=== PATIENT | male | born 1990 | race Caucasian/White ===

== ENCOUNTER 2025-01-20 12:54 | Emergency (ER) | payer SELFPAY ==
[2025-01-20 13:00] VITALS: BP 164/106; PULSE 63; RESP 18; TEMP 36.8; O2SAT 97; BMI 20.3
[2025-01-20 13:06] LABS: POC Glucose 98 mg/dL (70-99)
[2025-01-20 13:11] VITALS: PULSE 71; RESP 13; O2SAT 99
[2025-01-20 13:17] LABS: Add Manual Diff / Slide Review NO; Basophils Absolute Auto 0 /uL (0-100); Basophils Percent Auto 0.7 % (0-2); Eosinophils Absolute Auto 0 /uL (0-450); Eosinophils Percent Auto 0.1 % (2-4); Hematocrit 41.6 % (41-53); Hemoglobin 14.5 g/dL (13.5-17.5); Lymphocytes Absolute Auto 600 /uL (1100-4500); Lymphocytes Percent Auto 10.5 % (25-40); Mean Corpuscular HGB Conc 34.9 % (30-36); Mean Corpuscular Hemoglobin 33.5 PG (26-34); Mean Corpuscular Volume 96.1 fL (80-100); Monocytes Absolute Auto 600 /uL (0-900); Monocytes Percent Auto 10.2 % (3-14); Neutrophils Absolute Auto 4600 /uL (1500-7000); Neutrophils Percent Auto 78.5 % (50-75); Platelet Count 184 X10^3/uL (150-400); Red Blood Cell Count 4.33 X10^6/uL (4.5-5.9); Red Cell Distribution Width 12.6 % (11.6-14.8); White Blood Cell Count 5.9 X10^3/uL (4.5-11.0)
[2025-01-20 13:30] VITALS: BP 162/99; PULSE 91; O2SAT 99
--- NOTE | 2025-01-20 13:39 | ED.NAVMDI ---
HPI - Nausea/Vomiting/Diarrhea <Emilia Peterson PA-C - Last Filed: 01/20/25 17:29> General Chief complaint: Nausea/Vomiting/Diarrhea Stated complaint: Nausea, Dizziness, LUQ pain Time Seen by Provider: 01/20/25 12:57 Source: patient and EMS Mode of arrival: EMS History of Present Illness HPI Narrative: This is a 34-year-old male who denies any medical problems and comes in via [facility] with concern for 4-5 days of COVID/flu-like symptoms with severe nausea and abdominal discomfort beginning this morning. Patient endorses for 4 or 5 days he has been fatigued he has had a sore throat cough some chills and generally been feeling unwell with some associated lightheadedness/dizziness also states he had severe right ear pain for the last 4 days that seemed like it resolved fairly suddenly in the last 12 hours. He has not noted hearing change or drainage from his ear. Because of this he has not been using his vape pen as much as usual and has cut back quite a bit on both marijuana which he says he uses 2 to 4 times a week and also nicotine vaping. Endorses generalized upper abdominal discomfort which he associates with his excessive retching this morning. He feels a strong urge to vomit but feels unable to do so. He does state he last smoked marijuana at about 8:00 p.m. last night and his nausea symptoms started this morning around 7 or 8:00 a.m. He denies any diarrhea or constipation also denies chest pain palpitations or alcohol use. He states he drinks a few times a week and has not had alcohol recently. He states he has never had a problem like this before with excessive nausea. He acknowledges he has had 1 COVID vaccine shot the [employer] shot early on in the pandemic. And has had COVID before but symptoms were not as bad as they are now. He says his cough has largely resolved in the last 12 hours or so. Prior to arrival in the ER patient had 2.5 mg of Haldol, 4 mg of Zofran and 10 mg of Reglan as well as a L of fluids. Related Data Previous Rx's ?Medication ?Instructions ?Recorded benzonatate 100 mg capsule 100 mg PO BID PRN cough 10 days 01/20/25 #30 caps ciprofloxacin 0.3 %-dexamethasone 4 drp EAR-RIGHT Q12H otitis 01/20/25 0.1 % ear drops,suspension externa 7 days #7.5 mL metoclopramide HCl 5 mg tablet 5 mg PO Q8H PRN nausea and 01/20/25 (Reglan) vomiting #12 tabs Allergies Allergy/AdvReac Type Severity Reaction Status Date / Time No Known Drug Allergies Allergy Verified 01/20/25 13:01 Review of Systems <Emilia Peterson PA-C - Last Filed: 01/20/25 17:29> Review of Systems Narrative: See HPI Patient History <Emilia Peterson PA-C - Last Filed: 01/20/25 17:29> Smoking Status: Current every day smoker tobacco type: vaping Exam <Emilia Peterson PA-C - Last Filed: 01/20/25 17:29> Narrative Exam Narrative: GENERAL: [34] year old patient appears stated age. Very slim patient, in moderate distress--patient is sitting upright and forward attempting to vomit, retching into an emesis bag with no production. Patient does not appear to be inducing vomiting. HEAD: Atraumatic. Normocephalic. EYES: Pupils equal round and reactive. Extraocular motions intact. No scleral icterus. No injection or drainage. ENT: Nose without bleeding, purulent drainage. Throat with mild erythema, there is mild erythema of the tonsillar pillar. Without tonsillar hypertrophy or exudate. Airway patent. The right ear canal has thick yellowish white material in it, unable to visualize the TM. It was somewhat foul smelling. Culture obtained. The left TM is slightly retracted with clear fluid behind it. NECK: Trachea midline. Non tender CARDIOVASCULAR: Regular rate and rhythm without murmurs, gallops, or rubs. RESPIRATORY: Clear to auscultation. Breath sounds equal bilaterally. No wheezes, rales, or rhonchi. GASTROINTESTINAL: There is mild upper generalized abdominal discomfort on palpation, Abdomen soft, non-tender, nondistended, negative Richards's sign, negative McBurney's point tenderness no CVA tenderness. EXTREMITIES: No edema or joint tenderness. Moving all extremities BACK: Nontender without deformity or crepitance. No flank tenderness. NEURO: AOx3. SKIN: No rash or erythema of visible areas Initial Vital Signs Initial Vital Signs: Vital Signs Temperature 98.3 F 01/20/25 13:00 Pulse Rate 63 01/20/25 13:00 Respiratory Rate 18 01/20/25 13:00 Blood Pressure 164/106 H 01/20/25 13:00 Pulse Oximetry 97 01/20/25 13:00 Oxygen Delivery Method Room Air 01/20/25 13:00 <Lilia Degroot MD - Last Filed: 01/21/25 18:34> Initial Vital Signs Initial Vital Signs: Vital Signs Temperature 98.3 F 01/20/25 13:00 Pulse Rate 63 01/20/25 13:00 Respiratory Rate 18 01/20/25 13:00 Blood Pressure 164/106 H 01/20/25 13:00 Pulse Oximetry 97 01/20/25 13:00 Oxygen Delivery Method Room Air 01/20/25 13:00 Course <Emilia Peterson PA-C - Last Filed: 01/20/25 17:29> Orders Ordered: Discontinued Medications Sodium Chloride (Normal Saline 0.9%) 1,000 mls @ 1,000 mls/hr IV BOLUS PRN PRN Reason: Fluid replacement Sodium Chloride (Normal Saline 0.9%) 1,000 mls @ 1,000 mls/hr IV BOLUS ONE Stop: 01/20/25 15:07 Last Infusion: 01/20/25 14:58 Dose: 0 mls/hr Documented By: Admin: 01/20/25 14:11 Dose: 1,000 mls/hr Documented By: ANUJA Vital Signs Vital signs: Vital Signs - 8 hr 01/20/25 13:00 01/20/25 13:11 01/20/25 13:30 Temperature 98.3 F Pulse Rate 63 71 91 H Respiratory Rate 18 13 Blood Pressure 164/106 H Pulse Oximetry 97 99 99 Oxygen Delivery Method Room Air 01/20/25 13:30 01/20/25 14:00 01/20/25 14:00 Temperature Pulse Rate 87 Respiratory Rate 23 Blood Pressure 162/99 H 145/86 H Pulse Oximetry 98 Oxygen Delivery Method 01/20/25 14:54 01/20/25 14:54 01/20/25 14:59 Temperature Pulse Rate 83 83 Respiratory Rate 14 Blood Pressure 145/85 H 145/85 H Pulse Oximetry 99 99 Oxygen Delivery Method Room Air <Lilia Degroot MD - Last Filed: 01/21/25 18:34> Orders Ordered: Discontinued Medications Sodium Chloride (Normal Saline 0.9%) 1,000 mls @ 1,000 mls/hr IV BOLUS PRN PRN Reason: Fluid replacement Sodium Chloride (Normal Saline 0.9%) 1,000 mls @ 1,000 mls/hr IV BOLUS ONE Stop: 01/20/25 15:07 Last Infusion: 01/20/25 14:58 Dose: 0 mls/hr Documented By: Admin: 01/20/25 14:11 Dose: 1,000 mls/hr Documented By: ANUJA Vital Signs Vital signs: Vital Signs - 8 hr 01/20/25 13:00 01/20/25 13:11 01/20/25 13:30 Temperature 98.3 F Pulse Rate 63 71 91 H Respiratory Rate 18 13 Blood Pressure 164/106 H Pulse Oximetry 97 99 99 Oxygen Delivery Method Room Air 01/20/25 13:30 01/20/25 14:00 01/20/25 14:00 Temperature Pulse Rate 87 Respiratory Rate 23 Blood Pressure 162/99 H 145/86 H Pulse Oximetry 98 Oxygen Delivery Method 01/20/25 14:54 01/20/25 14:54 01/20/25 14:59 Temperature Pulse Rate 83 83 Respiratory Rate 14 Blood Pressure 145/85 H 145/85 H Pulse Oximetry 99 99 Oxygen Delivery Method Room Air MDM - Nausea/Vomiting/Diarrhea <Emilia Peterson PA-C - Last Filed: 01/20/25 17:29> Differential Diagnosis Differential diagnosis: Likely gastroenteritis, dehydration and other (Viral illness, COVID, otitis externa.) Medical Records Attestation: I reviewed the patient's medical records. Lab Data Attestation: I reviewed the patient's lab results. 01/20/25 13:10 01/20/25 13:40 Labs: Lab Results 01/20/25 01/20/25 01/20/25 Range/Units 13:00 13:10 13:17 WBC 5.9 (4.5-11.0) X10^3/uL RBC 4.33 L (4.5-5.9) X10^6/uL Hgb 14.5 (13.5-17.5) g/dL Hct 41.6 (41-53) % MCV 96.1 (80-100) fL MCH 33.5 (26-34) PG MCHC 34.9 (30-36) % RDW 12.6 (11.6-14.8) % Plt Count 184 (150-400) X10^3/uL Neut % (Auto) 78.5 H (50-75) % Lymph % (Auto) 10.5 L (25-40) % [place] % (Auto) 10.2 (3-14) % Eos % (Auto) 0.1 L (2-4) % Baso % (Auto) 0.7 (0-2) % Neut # (Auto) 4600 (0545-5977) /uL Lymph # (Auto) 600 L (7864-8764) /uL [place] # (Auto) 600 (0-900) /uL Eos # (Auto) 0 (0-450) /uL Baso # (Auto) 0 (0-100) /uL Sodium (137-145) mmol/L Potassium (3.4-5.1) mmol/L Chloride (98-107) mmol/L Carbon Dioxide (22-32) mmol/L BUN (9-20) mg/dL Creatinine (0.66-1.25) mg/dL Estimated GFR (>60) mL/min BUN/Creatinine Ratio (6-22) Glucose (70-99) mg/dL POC Whole Bld Glucose 98 (70-99) mg/dL Calcium (8.4-10.2) mg/dL Total Bilirubin (0.2-1.3) mg/dL AST (17-59) IU/L ALT (<50) IU/L Alkaline Phosphatase (38-126) U/L Total Protein (6.3-8.2) g/dL Albumin (3.5-5.0) g/dL Globulin (1.7-4.1) g/dL Albumin/Globulin Ratio (1.0-2.8) Lipase (23-300) U/L U Opiates 300ng/mL cut (Negative) Ur Oxycodone Screen (Negative) Urine Methadone Screen (Negative) Ur Barbiturates Screen (Negative) U Tricyclic Antidepress (Negative) Ur Phencyclidine Scrn (Negative) Ur Amphetamines Screen (Negative) U Methamphetamines Scrn (Negative) Ur MDMA Scrn (Ecstasy) (Negative) U Benzodiazepines Scrn (Negative) Urine Cocaine Screen (Negative) U Marijuana (THC) Screen (Negative) Urine pH (Normal) Urine Specific [place] (Normal) Ur Creatinine (Normal) SARS-CoV-2 (PCR) Negative (Negative) Influenza A (RT-PCR) Flu a positive H (NEGATIVE) Influenza B (RT-PCR) Flu b negative (NEGATIVE) RSV (PCR) Negative (Negative) 01/20/25 01/20/25 Range/Units 13:40 14:42 WBC (4.5-11.0) X10^3/uL RBC (4.5-5.9) X10^6/uL Hgb (13.5-17.5) g/dL Hct (41-53) % MCV (80-100) fL MCH (26-34) PG MCHC (30-36) % RDW (11.6-14.8) % Plt Count (150-400) X10^3/uL Neut % (Auto) (50-75) % Lymph % (Auto) (25-40) % [place] % (Auto) (3-14) % Eos % (Auto) (2-4) % Baso % (Auto) (0-2) % Neut # (Auto) (0212-5501) /uL Lymph # (Auto) (2806-8245) /uL [place] # (Auto) (0-900) /uL Eos # (Auto) (0-450) /uL Baso # (Auto) (0-100) /uL Sodium 134 L (137-145) mmol/L Potassium 4.2 (3.4-5.1) mmol/L Chloride 102 (98-107) mmol/L Carbon Dioxide 23 (22-32) mmol/L BUN 16 (9-20) mg/dL Creatinine 0.97 (0.66-1.25) mg/dL Estimated GFR > 60 (>60) mL/min BUN/Creatinine Ratio 16.5 (6-22) Glucose 98 (70-99) mg/dL POC Whole Bld Glucose (70-99) mg/dL Calcium 9.0 (8.4-10.2) mg/dL Total Bilirubin 0.4 (0.2-1.3) mg/dL AST 52 (17-59) IU/L ALT 31 (<50) IU/L Alkaline Phosphatase 79 (38-126) U/L Total Protein 7.2 (6.3-8.2) g/dL Albumin 4.4 (3.5-5.0) g/dL Globulin 2.8 (1.7-4.1) g/dL Albumin/Globulin Ratio 1.6 (1.0-2.8) Lipase 24 (23-300) U/L U Opiates 300ng/mL cut Negative (Negative) Ur Oxycodone Screen Negative (Negative) Urine Methadone Screen Negative (Negative) Ur Barbiturates Screen Negative (Negative) U Tricyclic Antidepress Negative (Negative) Ur Phencyclidine Scrn Negative (Negative) Ur Amphetamines Screen Negative (Negative) U Methamphetamines Scrn Negative (Negative) Ur MDMA Scrn (Ecstasy) Negative (Negative) U Benzodiazepines Scrn Negative (Negative) Urine Cocaine Screen Negative (Negative) U Marijuana (THC) Screen Positive H (Negative) Urine pH Normal (Normal) Urine Specific [place] Normal (Normal) Ur Creatinine Normal (Normal) SARS-CoV-2 (PCR) (Negative) Influenza A (RT-PCR) (NEGATIVE) Influenza B (RT-PCR) (NEGATIVE) RSV (PCR) (Negative) Urine Dip Bedside Urine Glucose Negative Bedside Urine Bilirubin - Negative Bedside Urine Ketone ++ 40 Urine Specific [place] 1.015 Bedside Urine Occult Blood - Negative Bedside Urine pH 6.0 Bedside Urine Protein +/- 15 Bedside Urine Urobilinogen - Negative Bedside Urine Nitrite - Negative Bedside Urine Leukocytes - Negative Esterase MDM Narrative Medical decision making narrative: This is a 34-year-old male with past history of vaping marijuana and cigarettes, presenting brought in by [place] [facility] from [facility] with concern for 4-5 days of flu-like symptoms with severe nausea and abdominal pain beginning this morning approximately 6 hours prior to arrival. Patient is vitals were fairly unremarkable although intermittent mild tachycardia. Persistent retching which ultimately improved likely 2nd to Haldol administered by [place] [facility] crew just prior to arrival. Patient was found to have a otitis externa of the right ear. And positive for COVID-19. Patient declined a chest x-ray, his lungs do sound clear on exam and he endorses no pain with coughing and no recent fevers. His abdominal exam is nonspecific and generalized. His labs do not suggest cholecystitis or liver abnormality and his lipase is also unremarkable. Patient comfortable with plan for discharge to home with medication for his external ear infection (culture obtained) as well as cough medicine and antinausea medicine. He is advised to follow up closely with his PCP and seek re-evaluation if he has new or worsening symptoms. Return precautions provided, follow-up plan discussed, all questions answered. <Lilia Degroot MD - Last Filed: 01/21/25 18:34> Lab Data Labs: Lab Results 01/20/25 01/20/25 01/20/25 Range/Units 13:00 13:10 13:17 WBC 5.9 (4.5-11.0) X10^3/uL RBC 4.33 L (4.5-5.9) X10^6/uL Hgb 14.5 (13.5-17.5) g/dL Hct 41.6 (41-53) % MCV 96.1 (80-100) fL MCH 33.5 (26-34) PG MCHC 34.9 (30-36) % RDW 12.6 (11.6-14.8) % Plt Count 184 (150-400) X10^3/uL Neut % (Auto) 78.5 H (50-75) % Lymph % (Auto) 10.5 L (25-40) % [place] % (Auto) 10.2 (3-14) % Eos % (Auto) 0.1 L (2-4) % Baso % (Auto) 0.7 (0-2) % Neut # (Auto) 4600 (4143-7634) /uL Lymph # (Auto) 600 L (5852-8472) /uL [place] # (Auto) 600 (0-900) /uL Eos # (Auto) 0 (0-450) /uL Baso # (Auto) 0 (0-100) /uL Sodium (137-145) mmol/L Potassium (3.4-5.1) mmol/L Chloride (98-107) mmol/L Carbon Dioxide (22-32) mmol/L BUN (9-20) mg/dL Creatinine (0.66-1.25) mg/dL Estimated GFR (>60) mL/min BUN/Creatinine Ratio (6-22) Glucose (70-99) mg/dL POC Whole Bld Glucose 98 (70-99) mg/dL Calcium (8.4-10.2) mg/dL Total Bilirubin (0.2-1.3) mg/dL AST (17-59) IU/L ALT (<50) IU/L Alkaline Phosphatase (38-126) U/L Total Protein (6.3-8.2) g/dL Albumin (3.5-5.0) g/dL Globulin (1.7-4.1) g/dL Albumin/Globulin Ratio (1.0-2.8) Lipase (23-300) U/L U Opiates 300ng/mL cut (Negative) Ur Oxycodone Screen (Negative) Urine Methadone Screen (Negative) Ur Barbiturates Screen (Negative) U Tricyclic Antidepress (Negative) Ur Phencyclidine Scrn (Negative) Ur Amphetamines Screen (Negative) U Methamphetamines Scrn (Negative) Ur MDMA Scrn (Ecstasy) (Negative) U Benzodiazepines Scrn (Negative) Urine Cocaine Screen (Negative) U Marijuana (THC) Screen (Negative) Urine pH (Normal) Urine Specific [place] (Normal) Ur Creatinine (Normal) SARS-CoV-2 (PCR) Negative (Negative) Influenza A (RT-PCR) Flu a positive H (NEGATIVE) Influenza B (RT-PCR) Flu b negative (NEGATIVE) RSV (PCR) Negative (Negative) 01/20/25 01/20/25 Range/Units 13:40 14:42 WBC (4.5-11.0) X10^3/uL RBC (4.5-5.9) X10^6/uL Hgb (13.5-17.5) g/dL Hct (41-53) % MCV (80-100) fL MCH (26-34) PG MCHC (30-36) % RDW (11.6-14.8) % Plt Count (150-400) X10^3/uL Neut % (Auto) (50-75) % Lymph % (Auto) (25-40) % [place] % (Auto) (3-14) % Eos % (Auto) (2-4) % Baso % (Auto) (0-2) % Neut # (Auto) (8012-9314) /uL Lymph # (Auto) (2820-5859) /uL [place] # (Auto) (0-900) /uL Eos # (Auto) (0-450) /uL Baso # (Auto) (0-100) /uL Sodium 134 L (137-145) mmol/L Potassium 4.2 (3.4-5.1) mmol/L Chloride 102 (98-107) mmol/L Carbon Dioxide 23 (22-32) mmol/L BUN 16 (9-20) mg/dL Creatinine 0.97 (0.66-1.25) mg/dL Estimated GFR > 60 (>60) mL/min BUN/Creatinine Ratio 16.5 (6-22) Glucose 98 (70-99) mg/dL POC Whole Bld Glucose (70-99) mg/dL Calcium 9.0 (8.4-10.2) mg/dL Total Bilirubin 0.4 (0.2-1.3) mg/dL AST 52 (17-59) IU/L ALT 31 (<50) IU/L Alkaline Phosphatase 79 (38-126) U/L Total Protein 7.2 (6.3-8.2) g/dL Albumin 4.4 (3.5-5.0) g/dL Globulin 2.8 (1.7-4.1) g/dL Albumin/Globulin Ratio 1.6 (1.0-2.8) Lipase 24 (23-300) U/L U Opiates 300ng/mL cut Negative (Negative) Ur Oxycodone Screen Negative (Negative) Urine Methadone Screen Negative (Negative) Ur Barbiturates Screen Negative (Negative) U Tricyclic Antidepress Negative (Negative) Ur Phencyclidine Scrn Negative (Negative) Ur Amphetamines Screen Negative (Negative) U Methamphetamines Scrn Negative (Negative) Ur MDMA Scrn (Ecstasy) Negative (Negative) U Benzodiazepines Scrn Negative (Negative) Urine Cocaine Screen Negative (Negative) U Marijuana (THC) Screen Positive H (Negative) Urine pH Normal (Normal) Urine Specific [place] Normal (Normal) Ur Creatinine Normal (Normal) SARS-CoV-2 (PCR) (Negative) Influenza A (RT-PCR) (NEGATIVE) Influenza B (RT-PCR) (NEGATIVE) RSV (PCR) (Negative) Urine Dip Bedside Urine Glucose Negative Bedside Urine Bilirubin - Negative Bedside Urine Ketone ++ 40 Urine Specific [place] 1.015 Bedside Urine Occult Blood - Negative Bedside Urine pH 6.0 Bedside Urine Protein +/- 15 Bedside Urine Urobilinogen - Negative Bedside Urine Nitrite - Negative Bedside Urine Leukocytes - Negative Esterase Discharge Plan Departure Patient Disposition: Home Clinical Impression: COVID-19, Nausea Otitis externa Qualifiers: Otitis externa type: unspecified type Chronicity: acute Laterality: right Qualified Code(s): H60.501 - Unspecified acute noninfective otitis externa, right ear Instructions: DI for Nausea -- Adult Activity Restrictions/Additional Instructions: *You have been diagnosed with [COVID-19, otitis externa of the right ear, nausea] *What to do: *Please continue to take your regular medications as directed. [ 3] New medication prescriptions sent to your pharmacy: [Reglan, ciprofloxacin dexamethasone ear drops, benzonatate] [ ] New medication written as a paper prescription [ ] No new medications given *Please follow up with your primary care provider in 2-3 days, call for an appointment. Let them know you were seen in the Emergency Department and that we ask that you be seen in follow up. We will electronically transmit a record of today's note if your PCP is in our system. You came in today with concern for severe nausea since this morning and viral symptoms for 4-5 days. Your test came back positive for COVID. You also have a right ear infection looks like an otitis externa infection of the ear canal. We took a culture swab of this for further evaluation and a prescribed some antibiotic ear drops. I have also prescribed some nausea medicine as well as some cough medicine for you. You declined a chest x-ray today. Your lungs are sounding okay and your cough has improved in the last day. Likely many of your symptoms are related to COVID however the dizziness you have been experiencing could also be from your ear infection. Your other blood labs that we got today were looking good. Please make sure that you stay hydrated and get plenty of rest and if you have new or worsening symptoms seek re-evaluation hope that you feel better soon. *If you do not have a primary care provider please contact the [facility] Resource line at [phone]. They will ask some questions about your medical history and help get you set up with a doctor in the community. *Return to Emergency Department if you should have any new, worsening or concerning symptoms, such as [fever greater than 101 F, shaking chills, worsening pain, persistent vomiting or other bothersome symptoms] Prescriptions: New ciprofloxacin-dexamethasone 0.3-0.1 % drops,suspension 4 drp EAR-RIGHT Q12H 7 Days Qty: 7.5 0RF metoclopramide HCl [Reglan] 5 mg tablet 5 mg PO Q8H PRN (Reason: nausea and vomiting) Qty: 12 0RF Rx Instructions: administer 30 minutes before meals benzonatate 100 mg capsule 100 mg PO BID PRN (Reason: cough) 10 Days Qty: 30 0RF Stand Alone Forms: Patient Portal/API ED Sign-out <Lilia Degroot MD - Last Filed: 01/21/25 18:34> Cosign ED Attending Cosignature Attestation: I was immediately available in the department for consultation throughout this patient's visit. Lilia Degroot MD
[2025-01-20 13:58] LABS: Influenza B - CEPHEID Flu B NEGATIVE (NEGATIVE); Respiratory Syncytial Virus Negative (Negative)
[2025-01-20 13:59] LABS: Alanine Aminotransferase 31 IU/L (<50); Albumin 4.4 g/dL (3.5-5.0); Albumin Globulin Ratio 1.6 (1.0-2.8); Alkaline Phosphatase 79 U/L (38-126); Aspartate Aminotransferase 52 IU/L (17-59); BUN Creatinine Ratio 16.5 (6-22); Bilirubin Total 0.4 mg/dL (0.2-1.3); Blood Urea Nitrogen 16 mg/dL (9-20); Carbon Dioxide 23 mmol/L (22-32); Chloride 102 mmol/L (98-107); Estimated Glomerular Filt Rate > 60 mL/min (>60); Globulin 2.8 g/dL (1.7-4.1); Glucose 98 mg/dL (70-99); HEMOLYSIS < 15 (0-50); Lipase 24 U/L (23-300); Potassium 4.2 mmol/L (3.4-5.1); Sodium 134 mmol/L (137-145); Total Protein 7.2 g/dL (6.3-8.2)
[2025-01-20 14:00] VITALS: BP 145/86; PULSE 87; RESP 23; O2SAT 98
[2025-01-20] MEDS: SODIUM CHLORIDE 0.9% 1,000 ML 1000 ML IV (14:11)
[2025-01-20 14:54] VITALS: BP 145/85; PULSE 83; O2SAT 99
[2025-01-20 14:59] VITALS: BP 145/85; PULSE 83; RESP 14; O2SAT 99
[2025-01-20 15:04] LABS: UR Morphine/Opiate cutoff 300 Negative (Negative); Ur Creatinine Normal (Normal); Ur Specific Gravity Normal (Normal); Urine Amphetamines Negative (Negative); Urine Barbiturates Negative (Negative); Urine Benzodiazepines Negative (Negative); Urine Cocaine Negative (Negative); Urine MDMA Negative (Negative); Urine Methadone Negative (Negative); Urine Methamphetamines Negative (Negative); Urine Oxycodone Negative (Negative); Urine Phencyclidine Negative (Negative); Urine Tetrahydrocannabinol Positive (Negative); Urine Tricyclic Antidepressant Negative (Negative); Urine pH Normal (Normal)
[2025-01-20 16:38] LABS: COVID-19 CEPHEID 4-PLEX PCR Negative (Negative); Influenza A - CEPHEID Flu A POSITIVE (NEGATIVE)
--- NOTE | 2025-01-20 18:49 | PC.NURSE ---
Lab called and pt is positive for flu A. covid negative. UJLIO Mark aware. I called patient and left a message for him to return the call for his results.
== END 2025-01-20 15:02 | disposition home or self-care (01) ==
PROVIDERS: Emergency Provider Student in an Organized Health Care Education/Training Program
DX: U07.1 COVID-19 (principal); H60.501 Unspecified acute noninfective otitis externa, right ear; R11.0 Nausea; F17.290 Nicotine dependence, other tobacco product, uncomplicated
CPT/HCPCS: 0241U; 36415; 80053; 80305; 81003; 82962; 83690; 85025; 87070; 87077; 87186; 87205; 96360; 99284